=== PATIENT | female | born 1970 ===

== ENCOUNTER 2021-07-07 12:09 | Emergency (ER) | payer SELFPAY ==
[2021-07-07] MEDS ORDERED: SODIUM CHLORIDE 0.9% 1000 ML 1,000 ML IV ONE (12:42)
[2021-07-07 12:45] VITALS: BP 109/67
[2021-07-07 13:47] LABS: Basophils % (Auto) 0.4 % (0.0-1.8); Eosinophils # (Auto) 0.1 K/mm3 (0.0-0.4); Eosinophils % (Auto) 1.9 % (0.0-4.3); Hematocrit 39.5 % (30.3-42.9); Hemoglobin 13.4 gm/dl (10.1-14.3); Lymphocytes # (Auto) 2.4 K/mm3 (1.2-5.4); Lymphocytes % (Auto) 35.4 % (13.4-35.0); Mean Corpuscular HGB Conc 34 % (30-34); Mean Corpuscular Volume 90 fl (79-97); Monocytes # (Auto) 0.5 K/mm3 (0.0-0.8); Monocytes % (Auto) 7.1 % (0.0-7.3); Platelet Count 264 K/mm3 (140-440); Red Blood Count 4.39 M/mm3 (3.65-5.03); Red Cell Distribution Width 13.1 % (13.2-15.2)
[2021-07-07 13:50] LABS: INR 0.87 (0.87-1.13)
[2021-07-07 14:05] LABS: Alanine Aminotransferase 19 units/L (7-56); Albumin 4.3 g/dL (3.9-5); Blood Urea Nitrogen 5 mg/dL (7-17); Calcium 9.4 mg/dL (8.4-10.2); Hemolysis Index 12
[2021-07-07 14:13] LABS: BUN/Creatinine Ratio 17
--- NOTE | 2021-07-07 15:16 | XRay Report ---
CHEST 1 VIEW 07/07/2021 2:09 PM INDICATION / CLINICAL INFORMATION: Chest Pain. COMPARISON: None available. FINDINGS: SUPPORT DEVICES: None. HEART / MEDIASTINUM: No significant abnormality. LUNGS / PLEURA: No significant pulmonary or pleural abnormality. No pneumothorax. ADDITIONAL FINDINGS: No significant additional findings. IMPRESSION: 1. No acute findings. Signer Name: Johnnie Choi MD Signed: 07/07/2021 3:11 PM Workstation Name: [id number]
--- NOTE | 2021-07-07 16:02 | Emergency Department Report ---
ED Chest Pain HPI - General Chief Complaint: Chest Pain Stated Complaint: CHEST PAIN PUI?: No Time Seen by Provider: 07/07/21 15:55 Source: patient, EMS Mode of arrival: Stretcher Limitations: No Limitations - History of Present Illness Initial Comments: 50-year-old female complaining of left-sided chest pain this morning after getting up emotionally upset with her [id number] and claims that the chest pressure was on the left side of the chest and radiated to her left arm. Patient denied associated shortness of breath or palpitations. Patient came to the ER via EMS and EMS reported a blood sugar of 398. Patient claims she smokes half a pack a day and also smokes marijuana. Patient denies history of diabetes before today. 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 Patient otherwise states her mom at 62 of heart disease but was having a heart issues since the 30s. MD Complaint: chest pain -: Gradual Onset: during rest Pain Location: substernal, left chest Pain Radiation: neck Severity: mild Severity scale (0 -10): 2 Quality: tightness Consistency: intermittent Improves With: nothing Worsens With: nothing re: nausea - Related Data Allergies Allergy/AdvReac Type Severity Reaction Status Date / Time aspirin Allergy Unknown Verified 07/07/21 12:22 Heart Score - HEART Score History: Moderately suspicious EKG: Non-specific Age: 45-65 Risk factors: 1-2 risk factors Troponin: < normal limit HEART Score: 4 ED Review of Systems ROS: Stated complaint: CHEST PAIN Other details as noted in HPI ED Physical Exam - General Limitations: No Limitations ED Course Vital Signs 07/07/21 07/07/21 12:17 12:43 Temperature 98.4 F 98.5 F Pulse Rate 109 H 98 H Respiratory 16 19 Rate Blood Pressure 136/73 109/67 [Left] O2 Sat by Pulse 100 100 Oximetry ED Medical Decision Making - Lab Data Result diagrams: 07/07/21 13:15 07/07/21 13:15 Critical care attestation.: If time is entered above; I have spent that time in minutes in the direct care of this critically ill patient, excluding procedure time. ED Disposition Clinical Impression: Chest pain at rest, Diabetes mellitus, new onset Disposition: 09 ADMITTED INPATIENT Is pt being admited?: Yes Does the pt Need Aspirin: No Condition: Fair Instructions: Nonspecific Chest Pain, Adult, Diabetes Mellitus Type 2 in Adults (ED) Referrals: ALBERTA SETH MD [Primary Care Provider] - 3-5 Days
[2021-07-07] MEDS ORDERED: INSULIN REGULAR, HUMAN 100 UNITS/1 ML IV ONE (16:06)
--- NOTE | 2021-07-08 17:13 | Electrocardiograph Report ---
[facility] Test Date: 2021-07-07 Test Time: 13:09:50 Pat Name: ANIL CALVO Department: Room: Gender: F Release Engineer: [id number] : 1970 Requested By: AKSHAT ZHANG Order Number: [id number] Reading MD: Adithya Muñoz Measurements Intervals [place] Rate: 93 P: 35 [place]: 148 QRS: 25 QRSD: 95 T: 241 QT: 346 QTc: 431 Interpretive Statements Sinus rhythm Low voltage, precordial leads No previous ECG available for comparison Electronically Signed On 07-08-2021 17:12:21 EDT by Adithya Muñoz
== END 2021-07-07 17:01 | disposition admitted as inpatient to this hospital (09) ==
LOC: ED 12:09
DX: R07.9 Chest pain, unspecified (principal); E11.9 Type 2 diabetes mellitus without complications
CPT/HCPCS: 36415; 71045; 80053; 82962; 83036; 84484; 84703; 85025; 85610; 93005; 96361; 96374; 99283; J7030